=== PATIENT | male | born 1965 | race Caucasian/White ===

== ENCOUNTER 2021-09-01 11:02 | Outpatient (CLI) | payer BC ==
[2021-09-01 22:06] LABS: SARS-CoV-2 PCR by NAA Not Detected (NotDetected)
== END 2021-09-01 11:03 | disposition home or self-care (01) ==
LOC: CSHLAB 11:02
PROVIDERS: ATTEND Internal Medicine Gastroenterology
DX: Z20.822 Contact with and (suspected) exposure to COVID-19 (principal); Z12.11 Encounter for screening for malignant neoplasm of colon; R13.10 Dysphagia, unspecified
CPT/HCPCS: U0003; U0005

== ENCOUNTER 2021-09-07 10:29 | Outpatient (CLI) | payer BC ==
[2021-09-07 21:43] LABS: SARS-CoV-2 PCR by NAA Not Detected (NotDetected)
== END 2021-09-07 10:30 | disposition home or self-care (01) ==
LOC: CSHLAB 10:29
PROVIDERS: ATTEND Internal Medicine Gastroenterology
DX: Z20.822 Contact with and (suspected) exposure to COVID-19 (principal); Z12.11 Encounter for screening for malignant neoplasm of colon; R13.10 Dysphagia, unspecified
CPT/HCPCS: U0003; U0005

== ENCOUNTER 2021-09-10 09:53 | Day surgery (SDC) | payer BC ==
[2021-09-01 13:24] VITALS: BMI 26.9
[2021-09-10] MEDS ORDERED: Lidocaine 1% MPF 2 ML VIAL ONE (10:16)
[2021-09-10] MEDS ORDERED: Lidocaine 1% PF 5 ML VIAL ONE (11:05)
[2021-09-10] MEDS ORDERED: Fentanyl 100 MCG/2 ML VIAL ONE (11:05)
[2021-09-10] MEDS ORDERED: PROPOFOL 40 ML ONE ×2 (11:05→11:31)
== END 2021-09-10 12:45 | disposition home or self-care (01) ==
LOC: CSHSDC 09:53
PROVIDERS: ATTEND Internal Medicine Gastroenterology
PROC: 0DB68ZZ Excision of Stomach, Via Natural or Artificial Opening Endoscopic (ICD-10-PCS; principal; 2021-09-10)
PROC: 0DBN8ZZ Excision of Sigmoid Colon, Via Natural or Artificial Opening Endoscopic (ICD-10-PCS; principal; 2021-09-10)
DX: R13.10 Dysphagia, unspecified (principal); D50.9 Iron deficiency anemia, unspecified; K21.9 Gastro-esophageal reflux disease without esophagitis; D12.5 Benign neoplasm of sigmoid colon; K57.30 Diverticulosis of large intestine without perforation or abscess without bleeding; K62.89 Other specified diseases of anus and rectum; K44.9 Diaphragmatic hernia without obstruction or gangrene; K25.9 Gastric ulcer, unspecified as acute or chronic, without hemorrhage or perforation; K29.80 Duodenitis without bleeding; I10 Essential (primary) hypertension; E78.5 Hyperlipidemia, unspecified; F20.9 Schizophrenia, unspecified; Z90.49 Acquired absence of other specified parts of digestive tract
CPT/HCPCS: 88305; J2704; J3010